=== PATIENT | male | born 1990 | race African-American/Black ===

== ENCOUNTER 2017-03-20 19:50 | Emergency (ER) | payer OTHER ==
[~2017-03-20] VITALS: Ht 180.3 cm; Wt 111.1 kg
[~2017-03-20 19:50] MED LIST: CLARITIN-D 12 H1 TA1 PO; CLARITIN10 MG; FLOXIN OTI0.3 %/5 M1 OT; GENTAK 3 MG/M3 MG/M1 OP; NOHOMEMEDICATIONS; NORCO 5-325 TA1 EACH PO; PENICILLIN VK500 M1 PO; PERCOCET 5-3251 EACH PO; TRAMADOL 50 MG50 MG PO; ZPAK PO
[2017-03-20] MEDS ORDERED: FLONASE 0.05%50 MCG NASAL (21:09)
[2017-03-20 21:16] VITALS: BP 141/82
== END 2017-03-20 21:17 | disposition home or self-care (01) ==
LOC: ER 19:50
DX: J30.9 Allergic rhinitis, unspecified (principal); H69.90 Unspecified Eustachian tube disorder, unspecified ear; H92.01 Otalgia, right ear; F10.99 Alcohol use, unspecified with unspecified alcohol-induced disorder

== ENCOUNTER 2017-09-20 23:54 | Emergency (ER) | payer OTHER ==
[~2017-09-20] VITALS: Ht 177.8 cm; Wt 108.9 kg
[~2017-09-20 23:54] MED LIST changes: +FLONASE 0.05%50 MCG NASAL
[2017-09-21] MEDS ORDERED: NORCO 5-325 TA1 EACH PO (00:14)
== END 2017-09-21 00:35 | disposition home or self-care (01) ==
LOC: ER 23:54
DX: M54.9 Dorsalgia, unspecified (principal); G89.29 Other chronic pain

== ENCOUNTER 2017-12-09 19:20 | Emergency (ER) | payer OTHER ==
[~2017-12-09] VITALS: Ht 180.3 cm; Wt 104.3 kg
[2017-12-09 19:24] VITALS: BP 130/80
== END 2017-12-09 19:55 | disposition home or self-care (01) ==
LOC: ER 19:20
DX: R10.9 Unspecified abdominal pain (principal); R11.2 Nausea with vomiting, unspecified; R19.7 Diarrhea, unspecified

== ENCOUNTER 2018-08-18 21:08 | Emergency (ER) | payer OTHER ==
[~2018-08-18] VITALS: Ht 180.3 cm; Wt 115.2 kg
--- NOTE | ~2018-08-18 | EKG ---
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
[2018-08-18 22:04] LABS: HEMATOCRIT 42.1 % (42.0-52.0); HEMOGLOBIN 14.3 gm/dL (14.0-18.0); MCHC 33.9 g/dL (28.0-37.0); MCV 85.5 fL (80.0-100.0); RBC 4.93 mil/uL (4.50-6.00); RDW 12.9 % (10.5-14.5); WBC 5.7 thou/uL (4.0-11.0)
[2018-08-18 22:06] LABS: ANION GAP 5 mmol/L (7-16); BUN 14 mg/dL (7-18); CALCIUM 9.8 mg/dL (8.5-10.1); CHLORIDE 105 mmol/L (98-107); CO2 29 mmol/L (21-32); GLUCOSE 106 mg/dL (74-106); POTASSIUM 3.5 mmol/L (3.5-5.1); SODIUM 139 mmol/L (136-145)
[2018-08-18 22:15] LABS: TROPONIN-I <0.06 ng/mL (<0.06)
[2018-08-18] MEDS ORDERED: MOBIC15 MG PO (23:17)
[2018-08-18 23:26] VITALS: BP 107/64
== END 2018-08-18 23:26 | disposition home or self-care (01) ==
LOC: ER 21:08
PROVIDERS: Emergency Medicine
DX: R07.89 Other chest pain (principal)

== ENCOUNTER 2018-09-28 10:57 | Emergency (ER) | payer OTHER ==
[~2018-09-28] VITALS: Ht 180.3 cm; Wt 114.8 kg
[~2018-09-28 10:57] MED LIST changes: +MOBIC15 MG PO
[2018-09-28] MEDS ORDERED: TRAMADOL 50 MG50 MG PO (11:16)
[2018-09-28] MEDS ORDERED: NAPROSYN500 MG PO (11:17)
[2018-09-28 11:25] LABS: URINE BILIRUBIN NEGATIVE (Negative); URINE BLOOD NEGATIVE (Negative); URINE CLARITY CLEAR; URINE COLOR YELLOW; URINE GLUCOSE-RANDOM* NEGATIVE (Negative); URINE KETONES NEGATIVE (Negative); URINE LEUKOCYTES-REFLEX NEGATIVE (Negative); URINE NITRITE-REFLEX NEGATIVE (Negative); URINE PROTEIN (DIPSTICK) NEGATIVE (Negative); URINE SPECIFIC GRAVITY > 1.030 (1.005-1.035); URINE UROBILINOGEN 0.2 E.U./dl (0.2-1.0)
[2018-09-28 11:44] LABS: HEMATOCRIT 40.7 % (42.0-52.0); HEMOGLOBIN 13.8 gm/dL (14.0-18.0); MCV 85.4 fL (80.0-100.0); RBC 4.76 mil/uL (4.50-6.00); WBC 4.4 thou/uL (4.0-11.0)
[2018-09-28 11:53] LABS: CREATININE 0.9 mg/dL (0.7-1.3); POTASSIUM 3.9 mmol/L (3.5-5.1)
[2018-09-28] MEDS ORDERED: MIRALAX17 GM PO (11:55)
[2018-09-28 12:14] VITALS: BP 109/66
== END 2018-09-28 12:14 | disposition home or self-care (01) ==
LOC: ER 10:57
PROVIDERS: Physician Assistant
DX: K59.00 Constipation, unspecified (principal)

== ENCOUNTER 2018-11-20 13:49 | Emergency (ER) | payer BC ==
[~2018-11-20] VITALS: Ht 180.3 cm; Wt 113.4 kg
[~2018-11-20 13:49] MED LIST changes: +MIRALAX17 GM PO; +NAPROSYN500 MG PO
[2018-11-20 13:50] VITALS: BP 120/71
[2018-11-20] MEDS ORDERED: MOBIC7.5 MG PO (15:02)
== END 2018-11-20 17:45 | disposition home or self-care (01) ==
LOC: ER 13:49
DX: M70.812 Other soft tissue disorders related to use, overuse and pressure, left shoulder (principal); Y93.89 Activity, other specified

== ENCOUNTER 2019-01-08 17:00 | Emergency (ER) | payer BC ==
[~2019-01-08] VITALS: Ht 177.8 cm; Wt 117.9 kg
[~2019-01-08 17:00] MED LIST changes: +MOBIC7.5 MG PO
[2019-01-08 17:55] LABS: ABSOLUTE NEUTROPHILS 2.8 thou/uL (1.4-8.2); BASOPHILS 0.8 % (0.0-2.0); EOSINOPHILS 1.3 % (0.0-3.0); HEMATOCRIT 43.3 % (42.0-52.0); HEMOGLOBIN 14.7 gm/dL (14.0-18.0); LYMPHOCYTES 35.2 % (24.0-44.0); MCH 28.8 pg (26.0-34.0); MCHC 33.9 g/dL (28.0-37.0); MONOCYTES 9.2 % (1.0-8.0); PLATELET COUNT 263 thou/uL (150-400); POLYS 53.5 % (36.0-66.0); RBC 5.09 mil/uL (4.50-6.00); RDW 12.7 % (10.5-14.5); WBC 5.3 thou/uL (4.0-11.0)
[2019-01-08 18:00] LABS: CALCIUM 9.4 mg/dL (8.5-10.1); POTASSIUM 3.7 mmol/L (3.5-5.1)
[2019-01-08 18:07] LABS: ALBUMIN 3.8 g/dL (3.4-5.0); TOTAL BILIRUBIN 0.2 mg/dL (<0.1-1.0); TOTAL PROTEIN 7.5 g/dL (6.4-8.2)
[2019-01-08 19:58] VITALS: BP 134/80
--- NOTE | 2019-01-09 07:17 | EKG ---
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 : 1990 Requested By: Jossy De Leon Order Number: [id number] MD: Ernie Sears Measurements Intervals [place] Rate: 65 P: 16 UT: 185 QRS: 50 QRSD: 92 T: 31 QT: 349 QTc: 363 Interpretive Statements Sinus rhythm ST elev, probable normal early repol pattern Baseline wander in lead(s) V5 Compared to ECG 08/18/2018 21:15:07 No significant changes Electronically Signed On 01-09-2019 7:17:35 CDT by Ernie Sears [email or web address] ��������������������������������������������� <ELECTRONICALLY SIGNED> ���������������������������������������� By: Ernie Sears MD, [facility] ��������������������������������������������� 01/09/19 07 30 30 Ernie Sears MD, [facility] /EPI
== END 2019-01-08 20:00 | disposition home or self-care (01) ==
LOC: ER 17:00
PROVIDERS: Physician Assistant
DX: R07.89 Other chest pain (principal)

== ENCOUNTER 2019-01-20 21:12 | Emergency (ER) | payer BC ==
[~2019-01-20] VITALS: Ht 177.8 cm; Wt 117.9 kg
[2019-01-20] MEDS ORDERED: IBUPROFEN 400400 M2 PO (22:21)
[2019-01-20 22:47] VITALS: BP 142/76
== END 2019-01-20 22:48 | disposition home or self-care (01) ==
LOC: ER 21:12
DX: M25.512 Pain in left shoulder (principal)

== ENCOUNTER 2019-04-05 22:35 | Emergency (ER) | payer BC ==
[~2019-04-05] VITALS: Ht 177.8 cm; Wt 117.9 kg
[~2019-04-05 22:35] MED LIST changes: +IBUPROFEN 400400 M2 PO
[2019-04-06 00:21] VITALS: BP 160/83
--- NOTE | 2019-04-07 09:06 | EKG ---
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: [email or web address] : 1990 Requested By: Mane Krause Order Number: [id number] MD: Ernie Sears Measurements Intervals [place] Rate: 60 P: 32 OR: 187 QRS: 53 QRSD: 97 T: 29 QT: 382 QTc: 382 Interpretive Statements Sinus rhythm ST elev, probable normal early repol pattern Compared to ECG 01/08/2019 18:31:33 No significant changes Electronically Signed On 04-07-2019 9:06:17 CDT by Ernie Sears [email or web address] ��������������������������������������������� <ELECTRONICALLY SIGNED> ���������������������������������������� By: Ernie Sears MD, [facility] ��������������������������������������������� 04/07/19 0906 D: [id number] Erine Sears MD, FACC /EPI
== END 2019-04-06 00:24 | disposition home or self-care (01) ==
LOC: ER 22:35
DX: R51 Headache (principal); R07.9 Chest pain, unspecified

== ENCOUNTER 2021-01-23 20:50 | Emergency (ER) | payer BC ==
[~2021-01-23] VITALS: Ht 177.8 cm; Wt 124.7 kg
[2021-01-23 21:30] LABS: BASOPHILS 0.8 % (0.0-2.0); EOSINOPHILS 1.8 % (0.0-3.0); HEMATOCRIT 40.4 % (42.0-52.0); HEMOGLOBIN 13.8 gm/dL (14.0-18.0); LYMPHOCYTES 40.6 % (24.0-44.0); MCH 29.3 pg (26.0-34.0); MCHC 34.1 g/dL (28.0-37.0); MONOCYTES 7.5 % (1.0-8.0); PLATELET COUNT 293 thou/uL (150-400); POLYS 49.3 % (36.0-66.0)
[2021-01-23 21:45] LABS: ANION GAP 8 mmol/L (7-16); BUN 14 mg/dL (7-18); CHLORIDE 106 mmol/L (98-107); CO2 25 mmol/L (21-32); GLUCOSE 120 mg/dL (74-106); POTASSIUM 3.6 mmol/L (3.5-5.1); SODIUM 139 mmol/L (136-145)
[2021-01-23 22:00] LABS: ALBUMIN 3.7 g/dL (3.4-5.0); AMYLASE 51 U/L (25-115); DIRECT BILIRUBIN < 0.1 mg/dL (<0.1-0.2); LIPASE 175 U/L (73-393); MAGNESIUM 1.7 mg/dL (1.8-2.4); PHOSPHORUS 3.1 mg/dL (2.6-4.7); SGOT 28 U/L (15-37); SGPT 59 U/L (16-63); TOTAL BILIRUBIN 0.3 mg/dL (0.2-1.0); TOTAL PROTEIN 7.4 g/dL (6.4-8.2); TROPONIN-I <0.06 ng/mL (<0.06)
[2021-01-23] MEDS ORDERED: NORCO5 PO (22:28)
[2021-01-23] MEDS ORDERED: NAPROXEN250 MG PO (22:28)
[2021-01-23 22:36] VITALS: BP 124/71
--- NOTE | 2021-01-24 08:48 | EKG ---
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: maria elena : 1990 Requested By: Bill Reeves Order Number: [id number] MD: Ernie Sears Measurements Intervals [place] Rate: 79 P: 27 MD: 183 QRS: 49 QRSD: 91 T: 28 QT: 346 QTc: 397 Interpretive Statements Sinus rhythm No significant abnormality Compared to ECG 04/05/2019 23:35:20 Repolarization abnormality is less prominent Electronically Signed On 01-24-2021 8:48:30 CDT by Ernie Sears [email or web address] <ELECTRONICALLY SIGNED> By: Ernie Sears MD, [facility] 01/24/21 [id number] rEnie Sears MD, FACC /EPI
== END 2021-01-23 22:40 | disposition home or self-care (01) ==
LOC: ER 20:50
PROVIDERS: Emergency Medicine
DX: R07.89 Other chest pain (principal)